=== PATIENT | female | born 1965 | race Caucasian/White ===

== ENCOUNTER 2018-01-04 20:38 | Emergency (ER) | payer MEDICAID, OTHER ==
[2018-01-04 20:39] VITALS: BMI 29.2
[2018-01-04 20:55] VITALS: TEMP 98.4
[2018-01-04] MEDS ORDERED: Sodium Chloride 0.9% 1,000 ML IV ONE (21:38)
--- NOTE | 2018-01-04 21:44 | C.PDOC ---
History Of Present Illness 52 year old female presents to the ED c/o crampy abdominal pain mostly on the left side. Patient states she took a colon cleanser 2 days ago which gave her 11 watery stools, 6 sift stools yesterday and 4 soft stools today. Patient states she eats a diet rich in rice, beans, fried food and plantains. Patient also is c/o of frequent constipation with no bowel movements for 2 days. Patient denies fever, chills, nausea, vomit, back pain. Time Seen by Provider: 01/04/18 21:32 Chief Complaint (Nursing): Abdominal Pain History Per: Patient History/Exam Limitations: no limitations Onset/Duration Of Symptoms: Days Current Symptoms Are (Timing): Still Present Context: Food Location Of Pain/Discomfort: LUQ, LLQ Radiation Of Pain To:: None Quality Of Discomfort: Cramping, "Pain" Associated Symptoms: Diarrhea Exacerbating Factors: Food Alleviating Factors: None Last Bowel Movement: Today Recent travel outside of the [place]: No Additional History Per: Patient Abnormal Vaginal Bleeding: No Past Medical History Reviewed: Historical Data, Nursing Documentation, Vital Signs Vital Signs: Last Vital Signs Temp 98.4 F 01/04/18 20:53 Pulse 88 01/04/18 21:50 Resp 18 01/04/18 21:50 BP 151/75 H 01/04/18 21:50 Pulse Ox 99 01/04/18 21:50 - Medical History PMH: Asthma Denies: Diabetes, HTN, Hyperlipidemia Surgical History: No Surg Hx - [facility] Procedures INCISE BARTHOLIN'[facility] GLAND (11/05/14) Family History: States: Unknown Family Hx Denies: CAD - Social History Hx Tobacco Use: No Hx Alcohol Use: Yes Hx Substance Use: No (DENIED) - Immunization History Hx Tetanus Toxoid Vaccination: No Hx Influenza Vaccination: No Hx Pneumococcal Vaccination: No Review Of Systems Constitutional: Negative for: Fever, Chills Cardiovascular: Negative for: Chest Pain, Palpitations Respiratory: Negative for: Cough, Shortness of Breath Gastrointestinal: Positive for: Abdominal Pain, Diarrhea. Negative for: Nausea Skin: Negative for: Rash Neurological: Negative for: Weakness, Numbness Physical Exam - Physical Exam Appears: Non-toxic, No Acute Distress Skin: Normal Color, Warm, Dry Head: Atraumatic, Normacephalic Eye(s): bilateral: Normal Inspection Nose: No Discharge Oral Mucosa: Moist Neck: Normal ROM, Supple Chest: Symmetrical Cardiovascular: Rhythm Regular, No Murmur Respiratory: Normal Breath Sounds, No Rales, No Rhonchi, No Wheezing Gastrointestinal/Abdominal: Soft, No Tenderness, No Guarding, No Rebound, Other (central obesity) Extremity: Normal ROM, No Tenderness, No Swelling Neurological/Psych: Oriented x3 Gait: Steady ED Course And Treatment - Laboratory Results Result Diagrams: 01/04/18 21:45 01/04/18 21:45 Lab Interpretation: Normal (ua neg, tox neg) Urine POC: Negative O2 Sat by Pulse Oximetry: 96 (On RA) Pulse Ox Interpretation: Normal - Other Rad abd x 2 X-Ray: Interpreted by Me (+FOS) Reevaluation Time: 22:24 Reassessment Condition: Improved Medical Decision Making Medical Decision Making: Impression: abdominal pain Plan: * Labs * IV fluids * Toradol 30 mg IVP * Abdomen X-Ray * UA persistent constipation prob related to high starch diet ? laxative abuse Disposition Doctor Will See Patient In The: Office Counseled Patient/Family Regarding: Studies Performed, Diagnosis - Disposition Disposition: HOME/ ROUTINE Disposition Time: 22:24 Condition: GOOD Forms: [facility] (German) - Clinical Impression Clinical Impression: Colicky LUQ abdominal pain - Scribe Statement The provider has reviewed the documentation as recorded by the Scribe Milan George All medical record entries made by the Scribe were at my direction and personally dictated by me. I have reviewed the chart and agree that the record accurately reflects my personal performance of the history, physical exam, medical decision making, and the department course for this patient. I have also personally directed, reviewed, and agree with the discharge instructions and disposition.
[2018-01-04 21:47] LABS: BASO % 0.3 % (0.0-2.0); EOS # 0.2 K/uL (0.0-0.7); EOS % 1.8 % (0.0-4.0); HEMOGLOBIN 13.6 g/dL (11.0-16.0); LYMPH # 1.8 K/uL (1.0-4.3); LYMPH % 17.2 % (20.0-40.0); MEAN CORPUSCULAR HEMOGLOBIN 33.1 pg (27.0-31.0); MEAN CORPUSCULAR HGB CONC 34.2 g/dL (33.0-37.0); MEAN PLATELET VOLUME 9.3 fL (7.2-11.7); MONO # 0.6 K/uL (0.0-0.8); MONO % 5.6 % (0.0-10.0); NEUT # 7.9 K/uL (1.8-7.0); NEUT % 75.1 % (50.0-75.0); NRBC % 0.1 % (0.0-2.0); RBC 4.11 Mil/uL (3.80-5.20); RED CELL DISTRIBUTION WIDTH 12.3 % (11.5-14.5); WHITE BLOOD COUNT 10.5 K/uL (4.8-10.8)
[2018-01-04] MEDS ORDERED: Sodium Chloride 0.9% 1,000 ML ONE (21:48)
[2018-01-04 21:58] VITALS: BP 151/75; PULSE 88; RESP 18
[2018-01-04 22:02] LABS: ALB/GLOB RATIO 1.1 (1.0-2.1); ALBUMIN 4.3 g/dL (3.5-5.0); ALT/SGPT 49 U/L (9-52); AST/SGOT 27 U/L (14-36); BLOOD UREA NITROGEN 19 mg/dL (7-17); GFR AFRICAN-AMERICAN > 60; GFR NON-AFRICAN AMERICAN > 60; LIPASE 120 U/L (23-300)
[2018-01-04 22:23] LABS: BARBITURATES, UR NEGATIVE (NEGATIVE); BENZODIAZEPINES, UR NEGATIVE (NEGATIVE); OPIATES, UR NEGATIVE (NEGATIVE); PHENCYCLIDINE, UR NEGATIVE (NEGATIVE)
[2018-01-04 22:25] VITALS: O2SAT 96
[2018-01-04 22:31] LABS: SQUAMOUS EPITHIAL 8 /hpf (0-5); URINE BACTERIA RARE (<OCC); URINE BILIRUBIN NEGATIVE (NEGATIVE); URINE BLOOD NEGATIVE (NEGATIVE); URINE CALCIUM OXALATE CRYSTALS OCC /hpf (<OCC); URINE CLARITY Hazy (Clear); URINE COLOR Yellow (YELLOW); URINE GLUCOSE (UA) NORMAL (Normal); URINE LEUKOCYTE ESTERASE NEG Leu/uL (Negative); URINE PROTEIN NEGATIVE (NEGATIVE); URINE UROBILINOGEN NORMAL mg/dL (0.2-1.0)
--- NOTE | 2018-01-05 09:01 | RAD ---
HISTORY: abd cramp COMPARISON: No prior. FINDINGS: BOWEL: Normal. No obstruction. No free air. BONES: Normal. OTHER FINDINGS: Right upper quadrant surgical clips status post cholecystectomy. IMPRESSION: No active disease.
== END 2018-01-04 22:37 | disposition home or self-care (01) ==
LOC: C.ER 20:38
DX: R10.84 Generalized abdominal pain (principal)
CPT/HCPCS: 74019; 80053; 81001; 83690; 84703; 85025; 96361; 96374; 99283; G0480; J1885; J7040

== ENCOUNTER 2018-04-12 10:22 | Day surgery (SDC) | payer MEDICAID ==
[2018-04-12 10:23] VITALS: BMI 29.2
--- NOTE | 2018-04-12 11:01 | C.PDOC ---
History Of Present Illness 53 y/o female presents to ED sent for evaluation of mass to left breast. Pt notes she has had the mass for "years" but in the last week it increased in size and started bleeding. Patient saw Dr. Cyr today who advised she come to ED for further evaluation. Patient denies fever, purulent discharge, rash, breast pain or any other complaints at this time. Time Seen by Provider: 04/12/18 10:39 Chief Complaint (Nursing): Medical Clearance History Per: Patient History/Exam Limitations: no limitations Onset/Duration Of Symptoms: Days Current Symptoms Are (Timing): Still Present Past Medical History Reviewed: Historical Data, Nursing Documentation, Vital Signs Vital Signs: Last Vital Signs Temp 97.6 F 04/12/18 14:45 Pulse 76 04/12/18 14:45 Resp 18 04/12/18 14:45 BP 140/66 04/12/18 14:45 Pulse Ox 100 04/12/18 16:25 - Medical History PMH: Asthma Surgical History: Cholecystectomy - [facility] Procedures INCISE BARTHOLIN'[facility] GLAND (11/05/14) Family History: States: No Known Family Hx - Social History Hx Tobacco Use: No Hx Alcohol Use: Yes Hx Substance Use: No (DENIED) - Immunization History Hx Tetanus Toxoid Vaccination: No Hx Influenza Vaccination: No Hx Pneumococcal Vaccination: No Review Of Systems Constitutional: Negative for: Fever, Chills Cardiovascular: Negative for: Chest Pain Gastrointestinal: Negative for: Nausea, Vomiting Skin: Positive for: Other (Breast mass). Negative for: Rash Physical Exam - Physical Exam Appears: Non-toxic, No Acute Distress Skin: Warm, Dry, No Rash Head: Atraumatic, Normacephalic Eye(s): bilateral: Normal Inspection, EOMI Nose: Normal Oral Mucosa: Moist Neck: Normal ROM, Supple Chest: Symmetrical, Other ((+) 1 cm pedunculated mass to 12'oclock on left breast. No surrounding erythema. No discharge) Cardiovascular: Rhythm Regular Respiratory: Normal Breath Sounds, No Rales, No Rhonchi, No Wheezing Neurological/Psych: Oriented x3, Normal Speech ED Course And Treatment - Laboratory Results Result Diagrams: 04/12/18 11:21 04/12/18 11:21 O2 Sat by Pulse Oximetry: 100 (RA) Progress Note: Blood work, UA, IV fluids. Case discussed with dr Cyr ,agree dupon plan and admission. Disposition - Disposition Disposition: HOSPITALIZED Disposition Time: 12:00 Condition: STABLE - Clinical Impression Clinical Impression: Breast mass - PA / FIELD PROJECT MANAGER / Resident Statement MD/DO has reviewed & agrees with the documentation as recorded. - Scribe Statement The provider has reviewed the documentation as recorded by the Patrickibchelo Stafford All medical record entries made by the Yuridia were at my direction and personally dictated by me. I have reviewed the chart and agree that the record accurately reflects my personal performance of the history, physical exam, medical decision making, and the department course for this patient. I have also personally directed, reviewed, and agree with the discharge instructions and disposition.
[2018-04-12] MEDS ORDERED: Sodium Chloride 0.9% 1,000 ML IV ONE ×2 (11:02→13:00)
[2018-04-12 11:26] LABS: BASO # 0.1 K/uL (0.0-0.2); BASO % 0.9 % (0.0-2.0); EOS # 0.2 K/uL (0.0-0.7); EOS % 3.5 % (0.0-4.0); HEMOGLOBIN 13.4 g/dL (11.0-16.0); LYMPH # 1.8 K/uL (1.0-4.3); MEAN CELL VOLUME 96.1 fL (81.0-99.0); MEAN CORPUSCULAR HEMOGLOBIN 33.5 pg (27.0-31.0); MEAN CORPUSCULAR HGB CONC 34.8 g/dL (33.0-37.0); MEAN PLATELET VOLUME 9.4 fL (7.2-11.7); MONO # 0.4 K/uL (0.0-0.8); MONO % 6.1 % (0.0-10.0); NEUT % 61.5 % (50.0-75.0); RBC 3.99 Mil/uL (3.80-5.20); RED CELL DISTRIBUTION WIDTH 12.2 % (11.5-14.5); WHITE BLOOD COUNT 6.5 K/uL (4.8-10.8)
[2018-04-12 11:37] LABS: PROTHROMBIN TIME 10.4 SECONDS (9.7-12.2)
[2018-04-12 11:39] LABS: ALB/GLOB RATIO 1.3 (1.0-2.1); ALBUMIN 4.5 g/dL (3.5-5.0); ALT/SGPT 51 U/L (9-52); AST/SGOT 45 U/L (14-36); BLOOD UREA NITROGEN 13 mg/dL (7-17); CALCIUM 9.5 mg/dl (8.6-10.4); GFR AFRICAN-AMERICAN > 60; GFR NON-AFRICAN AMERICAN > 60
[2018-04-12 11:52] LABS: HCG,QUALITATIVE URINE NEGATIVE (NEGATIVE)
[2018-04-12 11:54] LABS: SQUAMOUS EPITHIAL 4 /hpf (0-5); URINE BILIRUBIN NEGATIVE (NEGATIVE); URINE BLOOD NEGATIVE (NEGATIVE); URINE CLARITY Clear (Clear); URINE COLOR Yellow (YELLOW); URINE GLUCOSE (UA) NORMAL (Normal); URINE LEUKOCYTE ESTERASE NEG Leu/uL (Negative); URINE PROTEIN NEGATIVE (NEGATIVE); URINE UROBILINOGEN NORMAL mg/dL (0.2-1.0)
[2018-04-12] MEDS ORDERED: Midazolam 2 MG/2 ML VIAL ONE (13:13)
[2018-04-12] MEDS ORDERED: Propofol 10 mg/ml Inj (20 ML) ONE (13:13)
[2018-04-12] MEDS ORDERED: Lidocaine/Epinephrine 1% 1:100000 10 ML IJ ONE (13:24)
--- NOTE | 2018-04-12 13:50 | PCM.SURG1 ---
Surgeon's Initial Post Op Note - Surgeon's Notes Surgeon: Hannah Cyr Contract Agent: none Type of Anesthesia: IV Sedation, Local Pre-Operative Diagnosis: Granuloma left breast areola Operative Findings: 1cm bleeding pedunculated mass areolar portion of left breast Post-Operative Diagnosis: Granuloma left breast areola Operation Performed: excision mass left breast Specimen/Specimens Removed: areolar mass Estimated Blood Loss: EBL {In ML}: 1 Blood Products Given: N/A Drains Used: No Drains Post-Op Condition: Good Date of Surgery/Procedure: 04/12/18 Time of Surgery/Procedure: 13:50
[2018-04-12 14:51] VITALS: O2SAT 100
[2018-04-12 15:00] VITALS: BP 140/66; PULSE 76; RESP 18; TEMP 97.6
--- NOTE | 2018-04-12 23:16 | OP ---
PROCEDURE DATE: 04/12/2018 PREOPERATIVE DIAGNOSIS: Granuloma, left breast areola. POSTOPERATIVE DIAGNOSIS: Granuloma, left breast areola. PROCEDURE: Excision of mass, left breast. SURGEON: Dr. Danilo Cyr. ANESTHESIA: Local with IV sedation. ANESTHESIOLOGIST: Dr. Rousseau. DESCRIPTION OF OPERATION: With the patient in the supine position having received IV sedation, the left breast was prepped and draped in the usual sterile manner. A pedunculated bleeding mass with the gross appearance of a granuloma of approximately 1 cm diameter was noted at the 2 o'clock position of the left areola, and 1% lidocaine with epinephrine was injected beneath the stock of this mass. The base was excised elliptically in a radial direction and taken down through the full thickness of skin. There did not appear to be any deeper extension of mass beneath the level of the skin, and the mass was completely excised. Bleeding was controlled with cautery and closure was then performed with a single 4-0 Monocryl subcuticular suture and Dermabond. A dry sterile dressing was applied. The patient tolerated the procedure well and transferred to the recovery room in stable condition. Estimated blood loss for the procedure was 1 mL. Danilo Cyr MD
== END 2018-04-12 15:20 | disposition home or self-care (01) ==
LOC: C.ER 10:22 → C.SDS 11:15
PROVIDERS: ATTEND Specialist
DX: N63.20 Unspecified lump in the left breast, unspecified quadrant (principal)
CPT/HCPCS: 19120; 36415; 80053; 81001; 84703; 85025; 85610; 85730; 86850; 86900; 88305; 99283; J2250; J2704; J3010; J7030